=== PATIENT | female | born 1960 | race Caucasian/White ===

== ENCOUNTER → 2021-01-14 | Outpatient (CLI) | payer OTHER ==
[~2021-01-14] MED LIST: BENTYL 20MG TAB20 MG PO; CETIRIZINE HCL10 MG PO; ECOTRIN81 MG PO; FLONASE 0.05% N16 GM; FLOVENT DISKU100 MCG INH; HYDROCODON-ACE1 EAC4 PO; PROAIR HFA8.5 GM INH; XANAX 0.25 MG0.25 MG PO; ZANTAC300 MG PO; ZOFRAN4 MG PO
== END ==
LOC: KOH-I 11:18
DX: R55 Syncope and collapse (principal); I65.23 Occlusion and stenosis of bilateral carotid arteries
CPT/HCPCS: 93880

== ENCOUNTER → 2021-02-03 | Outpatient (CLI) | payer OTHER | LOC: MRI 08:05 | DX: H91.8X3 Other specified hearing loss, bilateral (principal) | CPT/HCPCS: 36415; 70553; 82565; A9577 ==

== ENCOUNTER → 2021-04-22 | Outpatient (CLI) | payer OTHER | LOC: KOH-I 15:22 | DX: J01.81 Other acute recurrent sinusitis (principal) | CPT/HCPCS: 70486 ==